=== PATIENT | male | born 1995 | race Caucasian/White ===

== ENCOUNTER 2017-04-15 20:55 | Emergency (ER) | payer OTHER ==
[~2017-04-15] VITALS: Ht 188 cm; Wt 145.0 kg
[2017-04-15 21:05] VITALS: BP 173/89; PULSE 83; RESP 20; TEMP 98.7; O2SAT 98
--- NOTE | 2017-04-15 22:32 | PD ---
HPI Chief Complaint: Laceration/Skin Injury Time Seen by Provider: 22:11 Travel History International Travel<30 days: No Contact w/Intl Traveler<30days: No Traveled to known affect area: No History of Present Illness HPI 21-year-old right-hand dominant white male presents emergency department with a laceration to his right hand while at work today. 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 He denies any numbness or tingling. He is up-to-date with immunizations. No alleviating or exacerbating activity. PFSH Past Medical History Narrative Medical Chronic knee pain Diabetes: No Patient Takes Glucophage: No Diminished Hearing: No Tetanus Vaccination: < 5 Years Past Surgical History Surgical History: No Previous Surgery Social History Alcohol Use: No Tobacco Use: No Substance Use: No Allergies-Medications (Allergen,Severity, Reaction): Coded Allergies: No Known Allergies (Unverified , 04/15/17) Reported Meds & Prescriptions Reported Meds & Active Scripts Active No Active Prescriptions or Reported Medications Review of Systems Except as stated in HPI: all other systems reviewed are Neg Physical Exam Narrative GENERAL: This is a well-nourished, well-developed patient, in no apparent distress. SKIN: No rashes, ecchymoses or lesions. Warm and dry. HEAD: Atraumatic. Normocephalic. EYES: PERRL, EOMI, no discharge or injection. No scleral icterus. EARS: Clear NOSE: Nasal turbinates appear normal. THROAT: Mucosa pink and moist. Airway patent. NECK: Trachea midline. supple, moves head freely. LUNGS: Clear to auscultation. CV: Regular in rhythm. ABDOMEN: Soft nontender. EXT: No clubbing cyanosis or edema. Patient has a 1 cm laceration to the interdigital space on the dorsum of the hand between the third and fourth metacarpal heads. There is no tendon or joint injury. This is just into the dermis. There is a piece of avulsed skin. Data Data Last Documented VS Vital Signs Date Time Temp Pulse Resp B/P (MAP) Pulse Ox O2 Delivery O2 Flow Rate FiO2 04/15/17 21:05 98.7 83 20 173/89 (117) 98 Room Air Orders Orders Ed Discharge Order (04/15/17 22:28) MDM Medical Decision Making Medical Screen Exam Complete: Yes Emergency Medical Condition: Yes Medical Record Reviewed: Yes Differential Diagnosis MDM: High Differential diagnoses: Fracture, sprain, strain, dislocation, contusion, neurovascular injury Narrative Course Patient's lacerations closed with sutures Procedures Procedure Narrative LACERATION LOCATION: Right hand dorsal surface between the third and fourth metacarpal heads LENGTH: 1.2 cm NUMBER OF STITCHES/DEVON: 2 REPAIR: The area of the laceration was prepped with Betadine and sterilely draped. The laceration was infiltrated with 1% lidocaine. The wound was copiously irrigated and explored without evidence of foreign body, tendon injury or neurovascular injury. The wound was closed using 5-0 Prolene. This was a simple single layer repair. A sterile dressing was applied. The patient was advised to keep the dressing clean and dry. Patient tolerated the procedure well. Diagnosis Primary Impression: Right hand laceration Patient Instructions: General Instructions Additional Instructions: Rest. Elevation. Daily wound care with soap, water, Neosporin. Tylenol or Advil for pain. Sutures out in 12 days. Return to the ER if any problems. Med/Other Pt SpecificInfo: Wound Care Scripts No Active Prescriptions or Reported Meds Disposition: 01 DISCHARGE HOME Condition: Stable Monster Galvan Apr 15, 2017 22:32
== END 2017-04-15 22:44 | disposition home or self-care (01) ==
LOC: NEPD 20:55
DX: S61.411A Laceration without foreign body of right hand, initial encounter (principal); X58.XXXA Exposure to other specified factors, initial encounter; Y99.0 Civilian activity done for income or pay
CPT/HCPCS: 12001

== ENCOUNTER 2017-05-09 11:11 | Emergency (ER) | payer SELFPAY ==
[~2017-05-09] VITALS: Ht 188 cm; Wt 145.4 kg
[2017-05-09 11:17] VITALS: BP 176/73; PULSE 73; RESP 18; TEMP 98.9; O2SAT 99
[2017-05-09 12:08] VITALS: BP 160/90
--- NOTE | 2017-05-09 12:36 | PD ---
HPI Chief Complaint: Injury Time Seen by Provider: 11:58 Travel History International Travel<30 days: No Contact w/Intl Traveler<30days: No Traveled to known affect area: No History of Present Illness HPI 21-year-old male presents to the emergency room for evaluation of chronic bilateral knee pain for the past 3 years. Patient states today while standing, his right knee cracked and gave out. States this occasionally happens. It significantly worsened his pain. Patient states he has been out of his pain meds for 2 years because he has not been able to get [facility] coverage. Patient states he was taking strong pain medications because Tylenol Motrin have no effect on his pain. Pain is constant, worsened with range of motion or ambulation. Started after he injured it in the 3 years ago. Patient reports multiple ligament injuries that were never repaired and did not improve with physical therapy. He just moved 4 weeks ago and has not been able to establish with a primary care physician or lead painter. History Social History Alcohol Use: No Tobacco Use: No Allergies-Medications (Allergen,Severity, Reaction): Coded Allergies: No Known Allergies (Unverified , 05/09/17) Reported Meds & Prescriptions Reported Meds & Active Scripts Active No Active Prescriptions or Reported Medications Review of Systems Except as stated in HPI: all other systems reviewed are Neg Physical Exam Narrative GENERAL: Well-nourished, well-developed male in no acute distress. Afebrile. Ambulatory. SKIN: Focused skin assessment warm/dry. No erythema or ecchymosis. HEAD: Normocephalic. EYES: No scleral icterus. No injection or drainage. NECK: Supple, trachea midline. No JVD or lymphadenopathy. CARDIOVASCULAR: Regular rate and rhythm without murmurs, gallops, or rubs. RESPIRATORY: Breath sounds equal bilaterally. No accessory muscle use. MUSCULOSKELETAL: No cyanosis, or edema. Full range of motion bilateral lower extremities. 2+ dorsalis pedis pulse on the right. No bony tenderness to palpation. Negative anterior posterior drawer test. Negative valgus and varus stress test. No bony tenderness to palpation. Data Data Last Documented VS Vital Signs Date Time Temp Pulse Resp B/P (MAP) Pulse Ox O2 Delivery O2 Flow Rate FiO2 05/09/17 12:08 160/90 (113) 05/09/17 11:17 98.9 73 18 99 MDM Medical Screen Exam Complete: Yes Emergency Medical Condition: No Differential Diagnosis Drug-seeking Narrative Course 21-year-old male presents to the emergency room for evaluation of chronic bilateral knee pain. States he just moved here and has not been able to establish with primary care physician or pain management physician. States only strong pain medications help his knees and he has been out of them for 2 years. Patient has multiple ligamentous injuries that worsened today after he twisted his knee. Right lower extremity is neurovascularly intact with 2+ dorsalis pedis pulse. He has full range of motion. No bony tenderness to palpation. No obvious instability. No erythema, ecchymosis, or edema. No increased warmth. He is ambulatory. No indication for imaging. Patient was informed we do not prescribe narcotics for chronic conditions. Told to follow- up with a primary care physician in the area return for worsening symptoms. He understands and agrees to plan. A medical screening exam was performed: At the time of evaluation the presenting medical condition was determined not to be of an emergent nature. The patient was given the option of receiving additional care, but declined. Patient was given options for additional community resources from which to obtain care. The Patient Has Been advised to seek medical attention for their presenting complaint. The patient has been advised to return to the ER at any time if an emergent condition develops. Primary Impression: Encounter for medical screening examination Scripts No Active Prescriptions or Reported Meds Disposition: 01 DISCHARGE HOME Condition: Stable Justa Ingram May 09, 2017 12:36
== END 2017-05-09 12:33 | disposition left against medical advice (07) ==
LOC: NEPK 11:11
DX: M25.562 Pain in left knee (principal); M25.561 Pain in right knee
CPT/HCPCS: 99282

== ENCOUNTER 2017-06-29 14:12 | Emergency (ER) | END 2017-06-29 20:48 | disposition home or self-care (01) | DX: B34.9 Viral infection, unspecified (principal); R42 Dizziness and giddiness | CPT/HCPCS: 71046; 80053; 82550; 84484; 85025; 87804; 93005; 96374; 99285; J1885; J7030 ==